=== PATIENT | female | born 1935 | race Caucasian/White ===

== ENCOUNTER → 2016-11-08 | Outpatient (CLI) | payer OTHER ==
[~2016-11-08] MED LIST: BNC/20125 PO; EZET10TA38 PO
--- NOTE | 2016-11-09 14:23 | MAMMOGRAPHY REPORT ---
BILATERAL DIGITAL SCREENING MAMMOGRAM TOMOSYNTHESIS WITH CAD: 11/08/2016 CLINICAL HISTORY: Asymptomatic. Personal history of breast cancer. TECHNIQUE: Breast tomosynthesis in addition to standard 2D mammography was performed. Current study was also evaluated with a Computer Aided Detection (CAD) system. COMPARISON: Comparison is made to exams dated: 11/08/2015 mammogram, 12/15/2014 mammogram, 05/05/2013 m ammogram, 05/11/2014 mammogram, and 05/14/2012 mammogram - [facility]. BREAST COMPOSITION: There are scattered areas of fibroglandular density in both breasts. FINDINGS: There is evidence of prior surgery in both breasts, with expected architectural distortion in each upper outer quadrant. There are benign appearing coarse and rodlike calcifications throughou t the left breast and benign rim calcifications in the right breast. A stable ribbon shaped metallic biopsy marker in the left upper outer middle one third of the breast. No new suspicious mass, archi tectural distortion or cluster of microcalcifications is seen. IMPRESSION: ACR BI-RADS CATEGORY 1: NEGATIVE There is no mammographic evidence of malignancy. A 1 year screening mammogram is recommended. The pa tient will receive written notification of the results. Approximately 10% of breast cancers are not detected with mammography. A negative mammographic report should not delay biopsy if a clinically suggestive mass is present. Tanesha Ledesma M.D. ay/:11/08/2016 17:06:44 Emergency Management Specialist: Leni FRANK(Jesus)(Marco)(BD), [facility] letter sent: Normal 1/2 BI-RADS Code: ACR BI-RADS Category 1: Negative
== END | disposition home or self-care (01) ==
LOC: C.MAMM 13:21
PROVIDERS: ATTEND Internal Medicine Hematology
DX: Z12.31 Encounter for screening mammogram for malignant neoplasm of breast (principal); Z85.3 Personal history of malignant neoplasm of breast

== ENCOUNTER → 2017-01-23 | Outpatient (CLI) | payer OTHER ==
--- NOTE | 2017-01-23 11:28 | DIAGNOSTIC IMAGING REPORT ---
CT SCAN OF THE CHEST WITHOUT IV CONTRAST CLINICAL HISTORY: Follow-up pulmonary nodules. Remote history of breast and ovarian cancer. COMPARISON STUDY: Abdominal CT dated 02/20/2016. TECHNIQUE: CT scan of the thorax was performed from the thoracic inlet to the upper abdomen. Images are reviewed in the axial, sagittal, and coronal planes. IV contrast was not administered for this examination as per the referring clinician. A dose lowering technique was utilized adhering to the principles of ALARA. CT DOSE: 239.30 mGycm FINDINGS: Thyroid: Imaged portions of the thyroid gland are normal in size and attenuation. Thoracic aorta: There is atherosclerotic calcification of the thoracic aorta, which is normal in caliber and demonstrates standard 3-vessel arch anatomy. Heart: The heart is normal in size and without pericardial effusion. There are coronary artery calcifications. Lungs and pleural spaces: There is no airspace consolidation or pleural effusion. Mild emphysema is identified. Linear scarring versus atelectasis is present at the left lung base and in the right middle lobe. The trachea and central airways are clear. There is a 2.0 x 1.6 cm nodule in the peritoneum mediastinal right upper lobe seen on axial image #49. This contains foci of macroscopic fat and calcifications, and is typical in appearance for a benign hamartoma. There are scattered (less than 10) additional subcentimeter pulmonary nodules seen throughout both lungs. The largest measures 5 mm and is seen in the right middle lobe on image #156. Additional development representative nodules are seen in the right upper lobe on image #88, the right middle lobe on image #165, and the left upper lobe on images #45 and #56. Mediastinum: There is no mediastinal lymphadenopathy. Jo Ann: Not well assessed without IV contrast. Axillae: Surgical clips are noted in the left axilla. No axillary lymphadenopathy is seen. Upper abdomen: A calcified granuloma is noted in the liver. There is a tiny hiatal hernia. A 1.3 cm left adrenal nodule meets CT criteria for a fat-containing adenoma. Skeletal structures: The skeletal structures are osteopenic. No lytic or blastic bony lesions are seen. IMPRESSION: 1. There is no convincing evidence of intrathoracic metastatic disease. 2. There is no airspace consolidation or pleural effusion. 3. There is a 2.0 cm nodule in the right upper lobe with this contains calcifications and macroscopic fat and is typical in appearance for a benign hamartoma. Correlation with any prior outside imaging studies is recommended to document stability. 4. There are scattered (less than 10) indeterminant but low suspicion pulmonary nodules measuring up to 5 mm. Correlation with any prior outside imaging studies is recommended to assess for long-term stability. If no prior studies are available then these can be followed as per the Fleischner criteria. See below. 5. Additional findings as above. Please refer to below summary of Fleischner criteria recommendations for follow-up of incidental CT nodules (Tip Smith, Guidelines for management of small pulmonary nodules detected on CT scans: A statement from the Fleischner Society, Radiology 237: [phone].) SOLID NODULES Solitary nodule size: <6 mm * low risk patients: no follow-up needed * high risk patients: optional CT at 12 months Solitary nodule size: 6-8 mm * low risk patients: follow-up at 6-12 months, then consider further follow-up at 18-24 months * high risk patients: initial follow-up CT at 6-12 months and then at 18-24 months if no change Solitary nodule size: >8 mm * either low or high risk patients - consider follow-up CT at 3 months, and/or CT-PET, and/or biopsy Multiple nodules size: <6 mm * low risk patients: no routine follow-up * high risk patients: optional CT at 12 months Multiple nodules size: 6-8 mm * low risk patients: follow-up at 3-6 months, then consider further follow-up at 18-24 months * high risk patients: follow-up at 3-6 months, then at 18-24 months if no change Multiple nodules size: >8 mm * low risk patients: follow-up at 3-6 months, then consider further follow-up at 18-24 months * high risk patients: follow-up at 3-6 months, then at 18-24 months if no change Note: newly detected indeterminate nodule in persons 35 years of age or older. * low risk patients: minimal or absent history of smoking and/or other known risk factors * high risk patients: history of smoking or of other known risk factors (e.g. first degree relative with lung cancer, or exposure to asbestos, radon, uranium) * if a nodule up to 8 mm is partly solid or is ground glass further follow-up is required after 24 months to exclude possible slow growing adenocarcinoma (SYD) SUBSOLID NODULES Solitary pure ground-glass nodule * nodule size <6 mm - no CT follow-up required * nodule size >=6 mm - follow-up CT at 6-12 months, then every 2 years until 5 years Solitary part-solid nodule * nodule size <6 mm - no CT follow-up required * nodule size >=6 mm - follow-up CT at 3-6 months. If unchanged, and solid component remains <6 mm, then annual follow-up for 5 years Multiple subsolid nodules * nodule size <6 mm - follow-up CT at 3-6 months, consider further follow-up at 2 and 4 years if stable * nodule size >=6 mm - follow-up CT at 3-6 months, subsequent management based on the most suspicious nodule(s) Electronically signed by: Hosea Karimi M.D. 01/23/2017 11:27 AM Dictated Date/Time: 01/23/2017 11:15 AM
== END | disposition home or self-care (01) ==
LOC: C.CTS 10:05
PROVIDERS: ATTEND Internal Medicine Hematology
DX: R91.1 Solitary pulmonary nodule (principal); Z85.3 Personal history of malignant neoplasm of breast; R91.8 Other nonspecific abnormal finding of lung field

== ENCOUNTER → 2017-02-20 | Outpatient (CLI) | payer OTHER ==
--- NOTE | 2017-02-20 17:16 | MAMMOGRAPHY REPORT ---
BREAST MRI OF BOTH BREASTS : 02/20/2017 CLINICAL HISTORY: 81-year-old woman with a prior history of left breast cancer status post breast con servation treatment. A recent benign ultrasound guided biopsy in the left breast. Also remote prior surgery in the right breast. COMPARISON: Comparison is made to exams dated: 02/06/2016 breast MRI, 11/08/2015 mammogram, 12/15/2014 m ammogram, 12/15/2014 ultrasound biopsy, 11/08/2016 mammogram, and 12/03/2014 breast MRI - [facility]. TECHNIQUE: Using a 1.5 Amira magnet and dedicated breast coil, multisequence axial images were obtain ed through the breasts. After uneventful IV administration of 6 mL of Gadavist, dynamic multiphase c ontrast-enhanced axial images, and sagittal postcontrast were obtained. Temporal subtraction axial i mages and 3-D MIP images are provided. Everything was then reviewed on a 3-D workstation, [employer]. FINDINGS: There is no significant background parenchymal enhancement in the breasts. There is eviden ce of prior surgery in both breasts, with architecture distortion noted in the upper outer posterior right breast. There is a larger area of distortion in the left upper outer posterior breast, with se veral areas of susceptibility artifact identified and there is asymmetry of the size of the breasts, right greater than left. There is no evidence of a new suspicious enhancing mass, non-mass enhanceme nt or suspicious kinetics bilaterally. No focal skin thickening or nipple retraction. No suspicious axillary lymphadenopathy bilaterally. Note is made of linear atelectatic changes in the dependent portion of the visualized right lung. IMPRESSION: ACR BI-RADS CATEGORY 2: BENIGN Stable breast MRI, without evidence of malignancy. Continuation of annual screening mammography and screening MRI schedule is recommended. The patient will receive written notification of the results. Tanesha Ledesma M.D. ay/:02/20/2017 16:38:04 Child Care Education Coordinator: die operator, [facility] letter sent: Normal 1/2 BI-RADS Code: ACR BI-RADS Category 2: Benign
== END | disposition home or self-care (01) ==
LOC: C.MRI 14:09
PROVIDERS: ATTEND Internal Medicine Hematology
DX: Z85.3 Personal history of malignant neoplasm of breast (principal); Z15.01 Genetic susceptibility to malignant neoplasm of breast; Z15.02 Genetic susceptibility to malignant neoplasm of ovary

== ENCOUNTER → 2018-01-15 | Outpatient (CLI) | payer OTHER ==
--- NOTE | 2018-01-16 15:13 | MAMMOGRAPHY REPORT ---
BILATERAL DIGITAL SCREENING MAMMOGRAM TOMOSYNTHESIS WITH CAD: 01/15/2018 CLINICAL HISTORY: Asymptomatic. Personal history of breast cancer. TECHNIQUE: The study was acquired using full field digital technology and interpreted from soft copy. Breast tomosynthesis in addition to standard 2D mammography was performed. Current study was also ev aluated with a Computer Aided Detection (CAD) system. COMPARISON: Comparison is made to exams dated: 11/08/2016 mammogram, 11/08/2015 mammogram, 12/15/2014 berny mogram, 12/03/2014 breast MRI, 05/11/2014 mammogram, and 05/05/2013 mammogram - [facility]. BREAST COMPOSITION: There are scattered areas of fibroglandular density in both breasts. FINDINGS: Linear scar markers overlie the upper outer quadrant of each breast. There is expected arc hitectural distortion in the upper outer posterior aspect of each breast, at sites of prior surgery. There is also coarse dystrophic calcification at the surgical site in the left upper outer breast. A stable ribbon-shaped biopsy clip is seen in the upper outer left breast as well. No new suspicious mass, architectural distortion or cluster of microcalcifications is seen. IMPRESSION: ACR BI-RADS CATEGORY 1: NEGATIVE There is no mammographic evidence of malignancy. A 1 year screening mammogram is recommended.( [id number]) The patient will receive written notification of the results. Some breast cancers are not detected with mammography. A negative mammographic report should not yohan y biopsy if a clinically suggestive mass is present. Tanesha Ledesma M.D. ay/:01/15/2018 16:09:18 Assistant Project Manager: RT Milton(Jesus)(M), [facility] letter sent: Normal 1/2 BI-RADS Code: ACR BI-RADS Category 1: Negative
== END | disposition home or self-care (01) ==
LOC: C.MAMM 14:13
PROVIDERS: ATTEND Family Medicine
DX: Z12.31 Encounter for screening mammogram for malignant neoplasm of breast (principal); Z85.3 Personal history of malignant neoplasm of breast